=== PATIENT | male | born 1980 | race Caucasian/White ===

== ENCOUNTER 2020-06-28 19:20 | Emergency (ER) | payer BC ==
--- NOTE | 2020-06-28 20:40 | RAD REPORT ---
EXAM DESCRIPTION: RAD - Knee Right 3 View - 06/28/2020 8:31 pm CLINICAL HISTORY: Pain;Smash injury COMPARISON: No comparisons FINDINGS: Trace suprapatellar joint effusion is noted. No fracture or dislocation is evident.
[2020-06-28] MEDS ORDERED: HYDROCODONE/APAP 7.5/325 MG TAB ONE (20:53)
--- NOTE | 2020-06-28 22:45 | ER ---
Nurse's Notes [facility] Name: Feroz Johnson Age: 40 yrs Sex: Male : 1980 Arrival Date: 06/28/2020 Time: 19:25 Bed 20 Private MD: Diagnosis: Internal derangement of knee;Effusion of joint Presentation: 06/28 19:55 Chief complaint: Patient states: Tried to jump into the 4-miner, missed it and landed ca1 awkwardly. Leg bent sideways, heard 2 pops. C/O R knee pain. 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 Coronavirus screen: Client denies travel out of the [place] in the last 14 days. At this time, the client does not indicate any symptoms associated with coronavirus-19. Ebola Screen: Patient negative for fever greater than or equal to 101.5 degrees Fahrenheit, and additional compatible Ebola Virus Disease symptoms Patient denies exposure to infectious person. Patient denies travel to an Ebola-affected area in the 21 days before illness onset. No symptoms or risks identified at this time. Initial Sepsis Screen: Does the patient meet any 2 criteria? No. Patient's initial sepsis screen is negative. Does the patient have a suspected source of infection? No. Patient's initial sepsis screen is negative. Risk Assessment: Do you want to hurt yourself or someone else? Patient reports no desire to harm self or others. Onset of symptoms was June 28, 2020. 19:55 Method Of Arrival: Wheelchair ca1 19:55 Acuity: JARED 4 ca1 Historical: - Allergies: 19:58 No Known Allergies; ca1 - Home Meds: 19:58 pantoprazole oral oral [Active]; ca1 - PMHx: 19:58 Gastric Reflux; ca1 - PSHx: 19:58 None; ca1 - Immunization history:: Adult Immunizations up to date. - Social history:: Smoking status: Patient reports the use of cigarette tobacco products, smokes one-half pack cigarettes per day. Screenin:40 Abuse screen: Denies threats or abuse. Denies injuries from another. Nutritional aj1 screening: No deficits noted. Tuberculosis screening: No symptoms or risk factors identified. Assessment: 20:30 General: Appears in no apparent distress. uncomfortable, Behavior is calm, cooperative, aj1 appropriate for age. Pain: Complains of pain in right knee Pain does not radiate. Neuro: Level of Consciousness is awake, alert, obeys commands, Oriented to person, place, time, situation. Cardiovascular: Patient's skin is warm and dry. Respiratory: Airway is patent Respiratory effort is even, unlabored, Respiratory pattern is regular, symmetrical. GI: No signs and/or symptoms were reported involving the gastrointestinal system. : No signs and/or symptoms were reported regarding the genitourinary system. EENT: No signs and/or symptoms were reported regarding the EENT system. Derm: No signs and/or symptoms reported regarding the dermatologic system. Skin is pink, warm \T\ dry. normal. Musculoskeletal: Range of motion: limited in right knee. 20:40 Reassessment: Patient requests pain medication. Notified Shayy Capellan NP. Order received. aj1 21:30 Reassessment: Patient appears in no apparent distress at this time. No changes from aj1 previously documented assessment. Patient and/or family updated on plan of care and expected duration. Pain level reassessed. Patient is alert, oriented x 3, equal unlabored respirations, skin warm/dry/pink. 22:43 Reassessment: Patient appears in no apparent distress at this time. No changes from aj1 previously documented assessment. Patient and/or family updated on plan of care and expected duration. Pain level reassessed. Patient is alert, oriented x 3, equal unlabored respirations, skin warm/dry/pink. Vital Signs: 19:55 BP 144 / 79; Pulse 69; Resp 16 S; Temp 98.3(TE); Pulse Ox 98% on R/A; Weight 104.33 kg ca1 (R); Height 5 ft. 6 in. (167.64 cm) (R); Pain 8/10; 23:13 BP 137 / 89; Pulse 66; Resp 16; Pulse Ox 99% on R/A; aj1 19:55 Body Mass Index 37.12 (104.33 kg, 167.64 cm) ca1 ED Course: 19:25 Patient arrived in ED. am2 19:57 Triage completed. ca1 19:58 Arm band placed on right wrist. ca1 19:59 Yasmine Capellan FNP-C is [facility]. snw 20:00 Leo Cisneros MD is Attending Physician. snw 20:31 Knee Right 3 View XRAY In Process Unspecified. EDMS 20:36 Tisha Hoang, RN is Primary Nurse. aj1 20:40 Patient has correct armband on for positive identification. Bed in low position. Call aj1 light in reach. 20:40 No provider procedures requiring assistance completed. Patient did not have IV access aj1 during this emergency room visit. 21:21 Inserted saline lock: 20 gauge in right antecubital area, using aseptic technique. Blood collected. 21:31 Lower Ext Angio In Process Unspecified. EDMS 22:10 Crutch training done. Knee immobilizer applied on right knee. 4 Administered Medications: 20:44 Drug: [place] (7.5 mg-325 mg) 1 tabs Route: PO; aj1 22:04 Follow up: Response: No adverse reaction; Pain is decreased aj1 Outcome: 22:45 Discharge ordered by . snw 23:13 Discharged to home via wheelchair. aj1 23:13 Condition: good 23:13 Discharge instructions given to patient, Instructed on discharge instructions, follow up and referral plans. medication usage, Demonstrated understanding of instructions, follow-up care, medications, Prescriptions given X 2. 23:13 Patient left the ED. aj1 Signatures: Dispatcher [employer] EDMD Tisha Hoang, RN RN aj1 Yasmine Capellan, PRODUCT SAFETY TECHNICAL ASSISTANT-C PRODUCT SAFETY TECHNICAL ASSISTANT-CsnNancy Stephens Winsy wh Acob, Cheryl RN RN [facility] Jamal Estrdaa count includes the [facility]
--- NOTE | 2020-06-28 22:45 | EDPHYS ---
Physician Documentation [facility] Name: Feroz Johnson Age: 40 yrs Sex: Male : 1980 Arrival Date: 06/28/2020 Time: 19:25 Bed 20 Private MD: ED Physician Leo Cisneros HPI: 06/28 21:55 This 40 yrs old Male presents to ER via Wheelchair with complaints of Knee snw Pain. 21:55 The patient presents with decreased range of motion, an injury, swelling, tenderness, snw weakness, pt states he felt his knee pop twice and it felt like it was just hanging. The complaints affect the right knee. Context: The problem was sustained outdoors, resulted from a mis-step, twisting of the extremity, while jumping, the patient can partially bear weight, must have assistance, Problem is a result from a previous injury: No. Onset: The symptoms/episode began/occurred suddenly, just prior to arrival. Associated signs and symptoms: Pertinent positives: swelling, tingling. Severity of symptoms: At their worst the symptoms were moderate. The patient has not experienced similar symptoms in the past. It is unknown whether or not the patient has recently seen a physician. Historical: - Allergies: 19:58 No Known Allergies; ca1 - Home Meds: 19:58 pantoprazole oral oral [Active]; ca1 - PMHx: 19:58 Gastric Reflux; ca1 - PSHx: 19:58 None; ca1 - Immunization history:: Adult Immunizations up to date. - Social history:: Smoking status: Patient reports the use of cigarette tobacco products, smokes one-half pack cigarettes per day. ROS: 21:53 Constitutional: Negative for fever, chills, and weight loss, Eyes: Negative for injury, snw pain, redness, and discharge, ENT: Negative for injury, pain, and discharge, Neck: Negative for injury, pain, and swelling, Cardiovascular: Negative for chest pain, palpitations, and edema, Respiratory: Negative for shortness of breath, cough, wheezing, and pleuritic chest pain, Abdomen/GI: Negative for abdominal pain, nausea, vomiting, diarrhea, and constipation, Back: Negative for injury and pain, : Negative for injury, bleeding, discharge, and swelling, Skin: Negative for injury, rash, and discoloration, Neuro: Negative for headache, weakness, numbness, tingling, and seizure, Psych: Negative for depression, anxiety, suicide ideation, homicidal ideation, and hallucinations. 21:53 MS/extremity: Positive for injury or acute deformity, decreased range of motion, pain, paresthesias, swelling, tenderness, of the right knee. Exam: 21:48 Constitutional: This is a well developed, well nourished patient who is awake, alert, snw and in no acute distress. Head/Face: Normocephalic, atraumatic. Eyes: Pupils equal round and reactive to light, extra-ocular motions intact. Lids and lashes normal. Conjunctiva and sclera are non-icteric and not injected. Cornea within normal limits. Periorbital areas with no swelling, redness, or edema. ENT: Nares patent. No nasal discharge, no septal abnormalities noted. Tympanic membranes are normal and external auditory canals are clear. Oropharynx with no redness, swelling, or masses, exudates, or evidence of obstruction, uvula midline. Mucous membranes moist. Neck: Trachea midline, no thyromegaly or masses palpated, and no cervical lymphadenopathy. Supple, full range of motion without nuchal rigidity, or vertebral point tenderness. No Meningismus. Chest/axilla: Normal chest wall appearance and motion. Nontender with no deformity. No lesions are appreciated. Cardiovascular: Regular rate and rhythm with a normal S1 and S2. No gallops, murmurs, or rubs. Normal PMI, no JVD. No pulse deficits. Respiratory: Lungs have equal breath sounds bilaterally, clear to auscultation and percussion. No rales, rhonchi or wheezes noted. No increased work of breathing, no retractions or nasal flaring. Abdomen/GI: Soft, non-tender, with normal bowel sounds. No distension or tympany. No guarding or rebound. No evidence of tenderness throughout. Back: No spinal tenderness. No costovertebral tenderness. Full range of motion. Skin: Warm, dry with normal turgor. Normal color with no rashes, no lesions, and no evidence of cellulitis. Neuro: Awake and alert, GCS 15, oriented to person, place, time, and situation. Cranial nerves II-XII grossly intact. Motor strength 5/5 in all extremities. Sensory grossly intact. Cerebellar exam normal. Normal gait. Psych: Awake, alert, with orientation to person, place and time. Behavior, mood, and affect are within normal limits. 21:48 Musculoskeletal/extremity: Extremities: grossly normal except: noted in the right knee: decreased ROM, pain, swelling, ROM: limited active range of motion due to pain, limited passive range of motion due to pain, Circulation is intact in all extremities. pt c/o paresthesias. Tingling of extremity. Vital Signs: 19:55 BP 144 / 79; Pulse 69; Resp 16 S; Temp 98.3(TE); Pulse Ox 98% on R/A; Weight 104.33 kg ca1 (R); Height 5 ft. 6 in. (167.64 cm) (R); Pain 8/10; 23:13 BP 137 / 89; Pulse 66; Resp 16; Pulse Ox 99% on R/A; aj1 19:55 Body Mass Index 37.12 (104.33 kg, 167.64 cm) ca1 MDM: 20:57 Patient medically screened. snw 22:51 Data reviewed: vital signs, nurses notes. Data interpreted: Pulse oximetry: on room air snw is 98 %. Interpretation: normal. Counseling: I had a detailed discussion with the patient and/or guardian regarding: the historical points, exam findings, and any diagnostic results supporting the discharge/admit diagnosis, radiology results, the need for outpatient follow up, to return to the emergency department if symptoms worsen or persist or if there are any questions or concerns that arise at home. Special discussion: Based on the history and exam findings, there is no indication for further emergent testing or inpatient evaluation. I discussed with the patient/guardian the need to see the orthopedic surgeon for further evaluation of the symptoms. I discussed with the patient/guardian the need to see the primary care provider for further evaluation of the symptoms. 06/28 20:00 Order name: Knee Right 3 View XRAY; Complete Time: 20:57 snw 06/28 21:08 Order name: Lower Ext Angio EDMS 06/28 21:08 Order name: SL; Complete Time: 21:21 snw 06/28 21:08 Order name: Knee Immobilizer; Complete Time: 22:05 snw Administered Medications: 20:44 Drug: [place] (7.5 mg-325 mg) 1 tabs Route: PO; aj1 22:04 Follow up: Response: No adverse reaction; Pain is decreased aj1 Disposition: 06/29 06:54 Co-signature as Attending Physician, Leo Csineros MD. [email or web address] Disposition: 06/28/20 22:45 Discharged to Home. Impression: Internal derangement of knee, Effusion of joint. - Condition is Stable. - Discharge Instructions: Knee Effusion, RICE for Routine Care of Injuries, Cryotherapy. - Prescriptions for Ultram 50 mg Oral Tablet - take 1 tablet by ORAL route every 6 hours As needed; 12 tablet. orphenadrine citrate 100 mg Oral Tablet Sustained Release - take 1 tablet by ORAL route 2 times per day As needed; 20 tablet. - Work release form, Medication Reconciliation Form, Thank You Letter, Antibiotic Education, Prescription Opioid Use form. - Follow up: Emergency Department; When: As needed; Reason: Worsening of condition. Follow up: Private Physician; When: 2 - 3 days; Reason: Recheck today's complaints, Continuance of care, Re-evaluation by your physician. Signatures: Dispatcher [employer] EDFL Tisha Hoang RN RN aj1 Yasmine Capellan, QUALITY CONTROL CLERK-C QUALITY CONTROL CLERK-Csnw Shea Medina RN RN ca1 Leo Cisneros MD MD 7 Corrections: (The following items were deleted from the chart) 06/28 23:13 22:45 06/28/2020 22:45 Discharged to Home. Impression: Internal derangement of knee; aj1 Effusion of joint. Condition is Stable. Discharge Instructions: Knee Effusion. Prescriptions for Ultram 50 mg Oral Tablet - take 1 tablet by ORAL route every 6 hours As needed; 12 tablet. and Forms are Work release form, Medication Reconciliation Form, Thank You Letter, Antibiotic Education, Prescription Opioid Use. Follow up: Emergency Department; When: As needed; Reason: Worsening of condition. Follow up: Private Physician; When: 2 - 3 days; Reason: Recheck today's complaints, Continuance of care, Re-evaluation by your physician. snw
[2020-06-28 23:22] VITALS: TEMP 98.3
[2020-06-28 23:23] VITALS: BP 137/89; O2SAT 99
--- NOTE | 2020-06-29 10:20 | RAD REPORT ---
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 Coronal and sagittal reformatted images also provided. COMPARISON: None. FINDINGS: The visualized right femoral, popliteal, anterior tibial, posterior tibial, and peroneal a rteries are normal in appearance. No aneurysm, dissection, or occlusion. There is no contrast extrava sation. There is no visualized intramuscular mass or hemorrhage. There is mild soft tissue swelling anterior to the right knee without soft tissue gas or foreign body . There is a small to moderate suprapatellar joint effusion. There is no acute fracture or dislocation. IMPRESSION: No arterial injury in the visualized right lower extremity. No visualized active bleedin g. Mild soft tissue swelling anterior to the right knee without acute fracture or dislocation. Small to moderate suprapatellar joint effusion. Electronically signed by: Adelaida Barreto MD 06/28/2020 9:58 PM CDT Due to temporary technical issues with the PACS/Fluency reporting system, reports are being signed by the in house radiologist without review as a courtesy to ensure prompt reporting. The interpreting r adiologist is fully responsible for the content of the report.
== END 2020-06-28 23:13 | disposition home or self-care (01) ==
LOC: ER 19:20
DX: M23.91 Unspecified internal derangement of right knee (principal); M25.461 Effusion, right knee; F17.210 Nicotine dependence, cigarettes, uncomplicated
CPT/HCPCS: 73706; 73562; 99284; Q9967

== ENCOUNTER 2022-03-06 09:12 | Day surgery (SDC) | payer BC, OTHER ==
[2022-03-06] MEDS ORDERED: Ringers Lactate 1,000 ML IV ONE ×2 (09:52→14:16)
[2022-03-06] MEDS ORDERED: OXYMETAZOLINE HCL 0.05% 15ML NAS ONE (11:04)
[2022-03-06] MEDS ORDERED: LIDOCAINE 1% MPF 5 ML VIAL ONE (11:17)
[2022-03-06] MEDS ORDERED: FENTANYL CITR 100 MCG/2 ML ONE ×2 (11:17→13:28)
[2022-03-06] MEDS ORDERED: propofoL 200 MG/20 ML VIAL IV ONE ×2 (11:17→11:52)
[2022-03-06] MEDS: OXYMETAZOLINE HCL 0.05% 15ML NAS ONE ×4 (11:19→12:13)
[2022-03-06] MEDS ORDERED: NA CHLORIDE 0.9% 500 ML ONE (11:27)
[2022-03-06] MEDS ORDERED: MIDAZOLAM HCL 2 MG/2 ML INJ ONE ×2 (11:28→11:52)
[2022-03-06] MEDS ORDERED: ONDANSETRON 4 MG/2 ML VIAL ONE ×2 (11:50→11:57)
[2022-03-06] MEDS ORDERED: LIDOCAINE 2% MPF 5 ML VIAL ONE (11:52)
[2022-03-06] MEDS ORDERED: FENTANYL CITR 250 MCG/5 ML ONE (11:53)
[2022-03-06] MEDS ORDERED: GLYCOPYRROLATE 0.2 MG/ML SYR ONE (11:53)
[2022-03-06] MEDS ORDERED: ROCURONIUM 50 MG/5 ML VIAL IV ONE ×2 (11:54→12:42)
[2022-03-06] MEDS ORDERED: NEOSTIGMINE 1 MG/ML -10 ML VIAL ONE (11:57)
[2022-03-06] MEDS ORDERED: dexAMETHasone 10 MG/ML VIAL ONE (11:57)
[2022-03-06] MEDS: LIDOCAINE 1% W/EPI 1:100,000 MDV 20 ML VIAL ONE ×2 (12:12→13:36)
--- NOTE | 2022-03-06 15:38 | P.BOP ---
Preoperative diagnosis: CRS, septal deviation, ETD Postoperative diagnosis: same with adenoid hypertrophy Primary procedure: NE with bilateral anterior ethmoidectomy, maxillary and frontal balloon Secondary procedure: septoplasty Other procedure(s): NE with bilateral ET dilation, adenoidectomy Estimated blood loss: 100ml Specimen: septum/sinus contents Findings: excessive oozing Anesthesia: General Complications: None Implants: Posisep dissolvable hemostatic dressing Fluids & blood products: IVF 1450ml Transferred to: Recovery Room Condition: Good
[2022-03-06] MEDS ORDERED: LABETALOL 20 MG/4ML SYRINGE IV ONE (15:44)
[2022-03-06] MEDS: HYDROMORPHONE HCL 1 MG/ML INJ ONE ×2 (15:56→16:07)
[2022-03-06 16:20] VITALS: O2SAT 95
[2022-03-06 17:01] VITALS: BP 161/79; TEMP 96.7
[2022-03-06] MEDS ORDERED: TRAMADOL HCL 50 MG TAB ONE (17:01)
--- NOTE | 2022-03-07 11:15 | P.OP ---
Date of Service: 03/06/22 Preoperative Diagnosis: Chronic maxillary sinusitis, chronic ethmoid sinusitis, chronic frontal sinusitis, nasal obstruction, septal deviation, chronic eustachian tube salpingitis Postoperative diagnosis: Same, with adenoid hypertrophy Procedure: Septoplasty, bilateral nasal endoscopy with maxillary antrostomy, bilateral nasal endoscopy with anterior ethmoidectomy, bilateral nasal endoscopy with balloon dilation of the frontal recess, nasal endoscopy with dilation of bilateral eustachian tube, partial adenoidectomy, extradural intraoperative CT navigation Surgeon: Sulema Uriostegui MD Life Skills Specialist: None Indication for procedure: The patient presented with a history of significant eustachian tube dysfunction requiring tympanostomy tube placement. He presented following extrusion of the tubes with a small right perforation of the eardrum and retraction with negative pressure on the left middle ear by tympanogram. He was previously evaluated by another ENT with a CT of the temporal bone which demonstrated normal-appearing anatomy of the nasopharynx, right mucosal retention cyst of the maxillary sinus, moderate anterior ethmoid opacification, obstruction of the left ostiomeatal complex and left frontal recess. The risks, benefits, and alternatives to surgical procedure were discussed with the patient and/or family and they agreed to proceed. Surgical findings: Significantly inflamed mucosa with greater than expected degree of oozing Specimens: septal and sinus trimmings. No cultures were collected as no active purulence was noted. IV Fluids: Crystalloid, 1450 ml Implants/Packing: Posisep dissolvable sinus packing Estimated Blood Loss: 100ml Complications: None Description of procedure in detail: The patient was brought to the operating room. They were placed under general anesthesia via oral endotracheal tube. The head of bed was turned 90 degrees. The nasal hairs were trimmed. The nasal cavity was examined with the nasal speculum and headlight with the following findings: The nasal septum was noted to be moderately deviated with high bony deviation to the left. The nasal cavity was packed with Afrin-soaked pledgets in preparation for the procedure. The patient was draped in a standard fashion for nasal surgery. Based on the surgical plan and preoperative findings, intraoperative CT navigation was required. The preoperative CT scan was loaded into the CinemaKi device. The registration dongle was applied with adhesive to the patient's forehead. The electromagnetic device was secured to the operating room bed and evaluation to limit interference was confirmed. The registration handpiece was used to perform patient registration in accordance with electric meter tester's instructions including tracing over the course of the external nose and bilateral forehead and cheeks. Accuracy of the registration was confirmed with [id number] matching at the base of the columella, the radix, and the bilateral medial and lateral canthi. Accuracy was felt to be very good. A 0 degree endoscope was then used to perform a nasal endoscopy with notable findings of narrow bilateral nasal cavity, worse on the left side. Mucosal inflammation was also noted. The nasopharynx was completely obstructed with hypertrophied adenoid tissue, obstructing visualization of the torus tubarius. There is also concern for polyp like tissue in the inferior aspect of the right middle meatus. The degree of septal deviation obstructed visualization of the middle turbinate and middle meatus on the left side. Photo documentation was obtained. Initial intent was to perform balloon dilation of the eustachian tubes. However, the eustachian tube openings were obscured by prominent adenoid tissue which was unanticipated. As the patient was already under general anesthesia, an attempt was made to contact his mother who was listed as his next of kin. While awaiting contact, I elected to proceed with right sinus procedures. The Denisse balloon dilation device was prepared in accordance with electric meter tester's instructions for use. Using a 0 degree endoscope, the middle turbinate was g ently medialized and the middle meatus was packed with Afrin-soaked pledgets. The mucosa was noted to be friable. After several minutes the pledget was removed, the uncinate process was visualized and the balloon device which was configured with a frontal bend was passed with ease into the right frontal recess. Placement was confirmed by dramatic illumination of the frontal sinus. The balloon was inflated, deflated and carefully removed. Attempt at left frontal dilation was deferred due to the severity of the septal deviation obstructing adequate visualization of the necessary structures. Using a 0 degree endoscope, backbiter, and 90 degree Blakesley forcep the right uncinate process was removed. Cannulation into the right sinus using a curved suction was confirmed, polypoid appearing tissue was removed using a 90 degree Blakesley creating a small maxillary antrostomy. Visualization was challenging due to the degree of mucosal oozing. Afrin-soaked pledgets were packed and allo wed to sit for several minutes. After removal, a 45 degree Blakesley was used to dissect and remove bony partitions from the anterior ethmoid cavity. Detailed dissection of bony partitions along the skull base and lamina was avoided due to poor visualization from mucosal oozing and inflammation. The sinus navigation precision pointer was used to confirm dissection into the opacified air cells noted on the preoperative CT scan. There was no evidence of injury to the skull base or lamina that I could discern. Afrin-soaked pledget was applied to this area. I was unable to confirm contact and obtain permission from the next of kin in regards to the treatment of the adenoids. In careful consideration with the patient's strong desire for improvement in his eustachian tube function, I cons idered the adenoidectomy a necessary though unplanned procedure. Appropriate equipment was brought into the room and the patient was slightly repositioned for adenoidectomy. The McIvor mouthgag was placed and suspended from the Belva stand with an rock breaker. The patient's mouth opening was somewhat limited. A red rubber catheter was passed through the patient's right nostril and advanced into the nasopharynx. The tip of the red rubber was then removed through the mouth and secured to the head drape for retraction of the soft palate. A laryngeal mirror was used for visualization of the nasopharynx. The view was very limited due to the patient's overall anatomy and I felt I could not adequately visualize the anatomy in order to safely remove the adenoid and protect/avoid damage to the eustachian tube. Therefore a very limited cauterization of the left adenoid was performed before this approach was abandoned. The red rubber catheter was removed, the McIvor was released and removed. The 0 degree endoscope and suction Bovie cautery were then used through the right and left side advancing through the inferior portion of the nasal cavity where there was adequate space. The adenoid tissue was judiciously cauterized and reduced, taking care to avoid the lateral aspects due to difficulty visualizing the eustachian tube opening. The septoplasty portion of the procedure was then initiated. The endoscopic sinus equipment was set aside and the nasal cavity was examined using a headlight and nasal speculum. The nasal septum was injected with 1% lidocaine with epinephrine and a right hemitransfixion incision was made along the caudal aspect of the nasal septum. A James elevator was used to elevate bilateral mucoperichondrial/mucoperiosteal flaps along the septum with no discernible injury or laceration of the mucosal surface. A small portion of the cartilaginous septum was removed using a caudal elevator and Raul forcep. The anterior portion of the septum was not significantly deviated. The Mahoney rongeurs were then used to carefully remove portions of the bony deviation taking care to avoid traction or twisting along the superior aspect of the septum. Once an adequate portion of bone had been removed, the left nasal cavity appeared significantly more open. The septal incision was left open until near the close of the procedure. Following the septoplasty, access to the nasopharynx and visualization of the left structures was significantly improved. The left middle turbinate appeared very small and quite lateralized. After medializing the middle turbinate and with a [place], I was able to use the entellus balloon, advancing it around the superior portion of the uncinate process and passing it into the frontal recess primarily by tactile technique. Confirmation of proper placement was demonstrated by brilliant and pinpoint illumination of the left frontal sinus. The balloon was then inflated and remained inflated for approximately 60 seconds prior to deflation. The device was slightly repositioned, reinflated held for approximately 1 minute and deflated to ensure full dilation along the entirety of the frontal recess tract. The balloon device was then reconfigured to a 45 degree angle in preparation for balloon dilation of the eustachian tube. The right and left eustachian tubes were easily cannulated, assisted significantly with tactile technique as well as visualization using a 0 degree endoscope with the initial approach. After successful cannulation of the eustachian tube, the balloon was inflated, and held for 120 seconds prior to deflation and careful removal. A similar technique was performed on both sides. The 0 degree endoscope was then used to visualize the left middle meatus. The uncinate process was removed using a backbiter and 90 degree Blakesley. Inflamed tissue was removed from the maxillary antrostomy using the 90 degree Blakesley and the maxillary sinus was successfully cannulated with a curved suction. Due to the degree of mucosal oozing and inflammation of the mucosa, a small antrostomy was created. The anterior ethmoid cells were then dissected and bony partitions removed using a 45 degree Blakesley. Again significant mucosal oozing limited visualization of critical structures and the image guidance system was used to confirm no obvious violation of the skull base or lamina. There was no clinical evidence of a CSF leak. Decision was made to forego detailed dissection of ethmoid partitions in light of visualization challenges. After ensuring hemostasis to the degree feasible, all packing was removed, pledget counts were confirmed correct. The septum was then closed using resorbable sutures in a running fashion along the hemitransfixion incision. The septal flaps were closed in a quilting-like fashion. The nose and sinuses were thoroughly irrigated using sterile saline. Posisep resorbable nasal/sinus dressings were trimmed and placed within the bilateral ethmoid and middle meatus regions and thoroughly irrigated with approximately 10 mL of sterile saline. Residual irrigation was suctioned, a final inspection indicated hemostasis within the sinus cavities. At the conclusion of the procedure, all pledget counts were confirmed correct. The patient was returned to care of anesthesia for awakening extubation in the operating room which proceeded without difficulty. The patient was transported to the recovery room and will be discharged home later today in the care of their family. The patient is given written instructions regarding the importance of saline irrigations and nasal precautions. Discharge medication: Hydrocodone/acetaminophen 7.5/325 mg sent electronically to patient's pharmacy of record. Future considerations: Given the overall degree of inflammation within the sinuses, he may benefit from long-term topical therapy, allergy testing and possible immunotherapy if indicated.
== END 2022-03-06 17:35 | disposition home or self-care (01) ==
LOC: OR 09:12
PROVIDERS: ATTEND Otolaryngology
PROC: 099Q8ZZ Drainage of Right Maxillary Sinus, Via Natural or Artificial Opening Endoscopic (ICD-10-PCS; 2022-03-06)
PROC: 0CBQXZZ Excision of Adenoids, External Approach (ICD-10-PCS; 2022-03-06)
PROC: 097G7ZZ Dilation of Left Eustachian Tube, Via Natural or Artificial Opening (ICD-10-PCS; 2022-03-06)
PROC: 097F7ZZ Dilation of Right Eustachian Tube, Via Natural or Artificial Opening (ICD-10-PCS; 2022-03-06)
PROC: 09BM8ZZ Excision of Nasal Septum, Via Natural or Artificial Opening Endoscopic (ICD-10-PCS; 2022-03-06)
PROC: 8E09XBZ Computer Assisted Procedure of Head and Neck Region (ICD-10-PCS; 2022-03-06)
PROC: 099R8ZZ Drainage of Left Maxillary Sinus, Via Natural or Artificial Opening Endoscopic (ICD-10-PCS; principal; 2022-03-06 11:15)
DX: J32.0 Chronic maxillary sinusitis (principal); J32.2 Chronic ethmoidal sinusitis; J32.1 Chronic frontal sinusitis; J34.89 Other specified disorders of nose and nasal sinuses; J34.2 Deviated nasal septum; H68.023 Chronic Eustachian salpingitis, bilateral; Z20.822 Contact with and (suspected) exposure to COVID-19
CPT/HCPCS: 31267; 31254; 31296; 42831; 69706; 30520; 61782; U0003; J2704 ×2; J2710; J2250 ×2; J3010 ×3; J1100; J1170; J7120 ×2; J7040; J2405 ×2; 88304